=== PATIENT | female | born 1950 | race Caucasian/White ===

== ENCOUNTER → 2020-11-18 | Outpatient (CLI) | payer MEDICARE ==
[~2020-11-18] MED LIST: BUTALB-CAFF-AC1 EACH PO; CLONIDINE HCL0.1 MG PO; DIAZEPAM10 MG PO; DIAZEPAM5 MG PO; NORCO 10-325 T1 EACH PO; PROMETHAZINE HC25 M1 PO; SUCRALFATE1 GM PO; TEMAZEPAM15 MG PO
== END ==
LOC: RAD 07:12
PROVIDERS: ATTEND Anesthesiology Pain Medicine
DX: M25.562 Pain in left knee (principal); M25.561 Pain in right knee